=== PATIENT | female | born 1975 | race Hispanic/Latino ===

== ENCOUNTER → 2018-02-05 | Outpatient (CLI) | payer OTHER ==
--- NOTE | 2018-02-05 17:17 | Diagnostic Imaging Report ---
PROCEDURE:C-SPINE COMPLETE COMPARISON:None. INDICATIONS:LEFT NECK/EAR PAIN FOR 3 MONTHS FINDINGS: The lateral view is visualized from the skull base to C7. The vertebral bodies are well-aligned. Vertebral body heights are maintained. There are no fractures, lytic or blastic lesions. The disc-space heights are well-maintained. The C1/C2-odontoid interval is normal. The pre-vertebral soft tissues are normal. CONCLUSION: Unremarkable cervical spine radiograph. Dictated by: Jaya Chen M.D. on 02/05/2018 at 17:18 Electronically approved by: Jaya Chen M.D. on 02/05/2018 at 17:18
== END ==
LOC: RAD 15:52
PROVIDERS: ATTEND Family Medicine
DX: M54.2 Cervicalgia (principal)
CPT/HCPCS: 72050